=== PATIENT | female | born 1980 | race Caucasian/White ===

== ENCOUNTER 2024-02-19 21:44 | Emergency (ER) | payer BC, OTHER ==
[~2024-02-19] VITALS: Ht 170.2 cm; Wt 83.9 kg
[~2024-02-19 21:44] MED LIST: CEPH-568; OMEP20CA15; SULF1TAB48
[2024-02-19 21:55] VITALS: BP_SYST 141; PULSE 92; RESP 16; TEMP 98.7; O2SAT 96
[2024-02-19 22:40] LABS: BASOPHILS % (AUTO) 0.5 % (0.0-2.0); EOSINOPHILS # (AUTO) 0.2 K/uL (0.0-0.4); EOSINOPHILS % (AUTO) 2.9 % (0.0-4.0); HEMATOCRIT 35.9 % (36-48); HEMOGLOBIN 12.6 g/dL (12.0-16.0); LYMPHOCYTES # (AUTO) 1.4 K/uL (1.0-5.5); LYMPHOCYTES % (AUTO) 18.2 % (20.5-51.5); MEAN CORPUSCULAR HEMOGLOBIN 30 pg (27-31); MEAN CORPUSCULAR HGB CONC 35 % (32-36); MEAN CORPUSCULAR VOLUME 86 fL (79.0-98.0); MONOCYTES # (AUTO) 0.7 K/uL (0.0-1.0); MONOCYTES % (AUTO) 9.3 % (1.7-9.3); NEUTROPHILS # (AUTO) 5.5 K/uL (1.8-7.7); NEUTROPHILS % (AUTO) 69.1 % (40.0-70.0); PLATELET COUNT (AUTO) 266 K/uL (130-430); RED BLOOD CELL COUNT(AUTO) 4.16 MIL/uL (4.2-6.2); WHITE BLOOD COUNT (AUTO) 7.9 K/uL (4.8-10.8)
[2024-02-19] MEDS: IPRATROPIUM/ALBUTEROL SULFATE 3 ML AMPUL.NEB (DUONEB) INH ONE (22:40)
[2024-02-19 22:52] LABS: CALCIUM 8.6 mg/dL (8.4-11.0); CREATININE 0.85 mg/dL (0.55-1.30); POTASSIUM 3.8 mmol/L (3.5-5.1)
[2024-02-20 00:09] LABS: INFLUENZA TYPE A Negative (NEGATIVE); INFLUENZA TYPE B NEGATIVE (NEGATIVE)
[2024-02-20] MEDS ORDERED: AZIT500T PO (00:28)
[2024-02-20] MEDS ORDERED: METH-776 PO (00:28)
[2024-02-20 00:35] VITALS: BP_SYST 138; PULSE 92; RESP 16; TEMP 98.7; O2SAT 97
== END 2024-02-20 00:36 | disposition home or self-care (01) ==
LOC: SED 21:44
DX: J45.909 Unspecified asthma, uncomplicated (principal); K21.9 Gastro-esophageal reflux disease without esophagitis; Z20.822 Contact with and (suspected) exposure to COVID-19
CPT/HCPCS: 36415; 71045; 80048; 85025; 94640; 99284

== ENCOUNTER 2024-02-22 01:32 | Emergency (ER) | payer OTHER ==
[~2024-02-22] VITALS: Ht 170.2 cm; Wt 88.5 kg
[~2024-02-22 01:32] MED LIST changes: +AZIT500T PO; +METH-776 PO
[2024-02-22 01:52] VITALS: BP_SYST 137; PULSE 83; RESP 20; TEMP 98; O2SAT 97
[2024-02-22] MEDS: FAMOTIDINE PF 20 MG/2 ML VIAL IVP ONE (02:36)
[2024-02-22] MEDS: MAG-AL HYDROX/SIMETH 30 ML UDC PO ONE (02:36)
[2024-02-22] MEDS: ONDANSETRON HCL 4 MG/2 ML VIAL IVP ONE (02:36)
[2024-02-22] MEDS: NACL 0.9% 1,000 ML IV ONE (02:36)
[2024-02-22] MEDS: MORPHINE 4 MG INJ. 4 MG/ML VIAL IVP ONE (02:37)
[2024-02-22 02:45] LABS: BASOPHILS # (AUTO) 0.2 K/uL (0.0-0.2); BASOPHILS % (AUTO) 1.6 % (0.0-2.0); EOSINOPHILS # (AUTO) 0.2 K/uL (0.0-0.4); EOSINOPHILS % (AUTO) 1.8 % (0.0-4.0); HEMOGLOBIN 14.4 g/dL (12.0-16.0); LYMPHOCYTES # (AUTO) 0.7 K/uL (1.0-5.5); LYMPHOCYTES % (AUTO) 5.7 % (20.5-51.5); MEAN CORPUSCULAR HEMOGLOBIN 29 pg (27-31); MEAN CORPUSCULAR HGB CONC 34 % (32-36); MEAN CORPUSCULAR VOLUME 87 fL (79.0-98.0); MONOCYTES # (AUTO) 0.9 K/uL (0.0-1.0); MONOCYTES % (AUTO) 7.2 % (1.7-9.3); NEUTROPHILS % (AUTO) 83.7 % (40.0-70.0); PLATELET COUNT (AUTO) 350 K/uL (130-430); RED BLOOD CELL COUNT(AUTO) 4.94 MIL/uL (4.2-6.2); RED CELL DISTRIBUTION WIDTH 13.4 % (9.0-15.0)
[2024-02-22 02:48] VITALS: TEMP 98
[2024-02-22 02:55] LABS: ALBUMIN 3.8 g/dL (3.4-4.8); CALCIUM 8.1 mg/dL (8.4-11.0); POTASSIUM 4.3 mmol/L (3.5-5.1); TOTAL BILIRUBIN 0.3 mg/dL (0.0-1.0); TOTAL PROTEIN, SERUM 7.7 g/dL (6.4-8.3)
[2024-02-22 03:53] LABS: SERUM HCG (QUALITATIVE) NEGATIVE (NEGATIVE)
[2024-02-22] MEDS ORDERED: ONDA-8 TL (04:37)
[2024-02-22 04:45] VITALS: BP_SYST 125; PULSE 76; RESP 20; O2SAT 96
[2024-02-22 04:54] LABS: BILIRUBIN,URINE NEGATIVE (NEGATIVE); BLOOD, URINE 3+ (NEGATIVE); CLARITY/URINE CLEAR (CLEAR); COLOR,URINE YELLOW (YELLOW); GLUCOSE,URINE NEGATIVE (NEGATIVE); KETONES,URINE NEGATIVE (NEGATIVE); LEUKOCYTE ESTERASE ,URINE TRACE (NEGATIVE); NITRITE, URINE NEGATIVE (NEGATIVE); PROTEIN URINE 1+ (NEGATIVE); UROBILINOGEN,URINE 0.2 (0.2-1.0)
[2024-02-22 05:09] LABS: WBC,URINE >100 /HPF (0-3)
[2024-02-22 05:10] LABS: BACTERIA,URINE FEW /HPF (None Seen)
== END 2024-02-22 04:46 | disposition home or self-care (01) ==
LOC: SED 01:32
DX: R11.2 Nausea with vomiting, unspecified (principal); R10.13 Epigastric pain; R03.0 Elevated blood-pressure reading, without diagnosis of hypertension; K21.9 Gastro-esophageal reflux disease without esophagitis; J45.909 Unspecified asthma, uncomplicated
CPT/HCPCS: 99285; 74177; 96374; 76705; 96375; 96361; 80053; 81000; 81001; 84703; 83690; 85025; 87086; 36415; 81025; 81015; J3490; J2405; J2270; Q9967; J7030